=== PATIENT | female | born 1965 | race Caucasian/White ===

== ENCOUNTER 2020-09-06 15:49 | Emergency (ER) | payer MEDICAID ==
[~2020-09-06] VITALS: Ht 154.9 cm; Wt 71.2 kg
[2020-09-06 16:28] VITALS: BP 151/80; Ht 154.9 cm; Wt 71.2 kg
== END 2020-09-06 21:02 | disposition home or self-care (01) ==
LOC: ED 15:49
DX: S82.141A Displaced bicondylar fracture of right tibia, initial encounter for closed fracture (principal); S01.21XA Laceration without foreign body of nose, initial encounter; S66.911A Strain of unspecified muscle, fascia and tendon at wrist and hand level, right hand, initial encounter; E11.9 Type 2 diabetes mellitus without complications; W17.2XXA Fall into hole, initial encounter; Y93.01 Activity, walking, marching and hiking; Y92.89 Other specified places as the place of occurrence of the external cause; Y99.8 Other external cause status
CPT/HCPCS: 90715; J2001

== ENCOUNTER 2020-09-11 12:09 | Emergency (ER) | payer MEDICAID ==
[~2020-09-11] VITALS: Ht 154.9 cm; Wt 71.2 kg
[2020-09-11 12:37] VITALS: Ht 154.9 cm; Wt 71.2 kg
[2020-09-11 13:34] VITALS: BP 130/77
== END 2020-09-11 13:34 | disposition home or self-care (01) ==
LOC: ED 12:09
DX: S62.101G Fracture of unspecified carpal bone, right wrist, subsequent encounter for fracture with delayed healing (principal); S01.21XD Laceration without foreign body of nose, subsequent encounter; S89.91XD Unspecified injury of right lower leg, subsequent encounter; E11.9 Type 2 diabetes mellitus without complications; W01.0XXD Fall on same level from slipping, tripping and stumbling without subsequent striking against object, subsequent encounter